=== PATIENT | female | born 1965 | race American Indian/Alaskan Native ===

== ENCOUNTER 2020-10-22 08:00 | Outpatient (CLI) | payer OTHER | END 2020-10-22 08:30 | disposition home or self-care (01) | LOC: PPH VACUNA 08:00 | DX: Z23 Encounter for immunization (principal) ==

== ENCOUNTER 2020-11-12 08:00 | Outpatient (CLI) | payer OTHER | END 2020-11-12 08:30 | disposition home or self-care (01) | LOC: PPH VACUNA 08:00 | PROVIDERS: ATTEND Emergency Medicine Pediatric Emergency Medicine | DX: Z23 Encounter for immunization (principal) ==

== ENCOUNTER → 2024-06-12 | Emergency (ER) | payer OTHER ==
[~2024-06-12] VITALS: Ht 160 cm; Wt 109.8 kg
[~2024-06-12] MED LIST: AVALIDE 150/12.1 TAB PO; CATAFLAM50 MG PO; DEPAKOTE ER500 MG; DEPAKOTE ER500 MG PO; DICLOFENAC SODI75 MG PO; FUROsemide 20 MG/2 ML VIAL IV ONE; FUROsemide 20 MG/2 ML VIAL ONE; KEPPRA750 MG; KEPPRA750 MG PO; KETOROLAC TROMETHAMINE 30 MG VIAL IV ONE; KETOROLAC TROMETHAMINE 30 MG VIAL ONE; ORPH100T PO; ORPHENADRINE CITRATE 30 MG/ML AMPUL IM ONE; ORPHENADRINE CITRATE 30 MG/ML AMPUL ONE; TRIAMCINOLONE ACETONIDE 40 MG/ML VIAL IM ONE; TRIAMCINOLONE ACETONIDE 40 MG/ML VIAL ONE
[2024-06-12 11:02] LABS: HEMATOCRIT 38.5 % (36.0-45.00); MEAN CELL VOLUME 90.5 fL (80.00-100.00); MEAN CORPUSCULAR HEMOGLOBIN 30.4 pg (27.00-32.0); MEAN CORPUSCULAR HGB CONC 33.6 g/dl (32.0-36.0); PLATELET COUNT 223 K/uL (150-450); RED BLOOD COUNT 4.26 M/uL (4.00-6.00)
[2024-06-12 11:06] LABS: PH,URINE 7.5 (5.0-8.0); URINE APPEARANCE Clear; URINE BILIRRUBIN Negative (NEGATIVE); URINE BLOOD Negative; URINE COLOR Yellow; URINE GLUCOSE Negative (NEGATIVE); URINE KETONE Trace (NEGATIVE); URINE LEUKOCYTE Negative; URINE NITRATE Negative; URINE PROTEIN Negative (NEGATIVE)
[2024-06-12 11:12] LABS: URINE BACTERIA 9.7 uL (0.0-1933); URINE EPITHELIAL CELLS 6.7 uL (0.0-38.8); URINE RBC 4.5 uL (0.0-20.8); URINE WBC 1.8 uL (0.0-23.2)
[2024-06-12 11:22] LABS: ERYTHROCYTE SEDIMENTATION RATE 56 mm/hr
[2024-06-12 12:30] LABS: ALBUMIN 3.3 gm/dL (3.4-5.0); BILIRUBIN TOTAL 0.44 mg/dL (0.3-1.2); CREATININE SERUM 0.7 mg/dL (0.55-1.02); GFR 85.65; GLOBULINA 3.8 G/DL (2.4-3.5); POTASSIUM 4.26 mEq/L (3.5-5.1); TOTAL PROTEIN 7.1 gm/dL (6.4-8.2)
[2024-06-12 12:38] LABS: C-REACTIVE PROTEIN 7.54 MG/DL (0.00-0.29)
== END | disposition home or self-care (01) ==
LOC: ER 09:29
PROVIDERS: General Practice
DX: R60.0 Localized edema (principal); R59.1 Generalized enlarged lymph nodes; M62.838 Other muscle spasm; Z20.822 Contact with and (suspected) exposure to COVID-19